=== PATIENT | male | born 1985 | race Caucasian/White ===

== ENCOUNTER 2017-05-28 17:52 | Emergency (ER) | payer BC, MEDICAID | END 2017-05-28 19:33 | disposition left against medical advice (07) | LOC: ER 17:54 | DX: Z53.21 Procedure and treatment not carried out due to patient leaving prior to being seen by health care provider (principal) ==

== ENCOUNTER 2018-11-17 17:02 | Emergency (ER) | payer BC, MEDICAID ==
[~2018-11-17] VITALS: Ht 188 cm; Wt 113.6 kg
[2018-11-17 17:24] VITALS: BP 129/81
[2018-11-17 18:04] LABS: CLARITY,URINE CLEAR (Clear); COLOR,URINE YELLOW (Yellow); GLUCOSE, URINE NEGATIVE (Neg); KETONES,URINE NEGATIVE (Neg); LEUKOCYTE ESTERASE ,URINE NEGATIVE (Neg); NITRITES, URINE NEGATIVE (Neg); OCCULT BLOOD,URINE NEGATIVE (Neg); PROTEIN,URINE NEGATIVE (Neg); UROBILINOGEN,URINE 0.2 E.U/dL (0.2-1.0)
[2018-11-17] MEDS ORDERED: HYDROcodone/acetaminophen 5mg/325mg tablet PO ONE (18:05)
[2018-11-17] MEDS ORDERED: ibuprofen tablet 400 MG TABLET PO ONE (18:05)
[2018-11-17] MEDS ORDERED: ondansetron 4mg rapidly disintigrating tab PO ONE (18:05)
[2018-11-17 18:07] LABS: UA COLLECTION TYPE CLN CATCH MIDSTREAM
[2018-11-17 18:26] LABS: BASOPHILS # (AUTO) 0.1 X10'3 (0-0.2); BASOPHILS % (AUTO) 0.7 % (0-1); EOSINOPHILS # (AUTO) 0.4 X10'3 (0-0.9); EOSINOPHILS % (AUTO) 4.5 % (0-6); HEMATOCRIT 42.6 % (42.0-52.0); LYMPHOCYTES # (AUTO) 3.3 X10'3 (1.1-4.8); LYMPHOCYTES % (AUTO) 38.9 % (21-51); MEAN CORPUSCULAR HGB CONC 35.2 g/dL (33.0-36.5); MEAN CORPUSCULAR VOLUME 87.9 FL (78-98); MEAN PLATELET VOLUME 8.1 FL (7.4-10.4); MONOCYTES # (AUTO) 0.5 X10'3 (0-0.9); MONOCYTES % (AUTO) 6.2 % (2-12); NEUTROPHILS # (AUTO) 4.2 X10'3 (1.8-7.7); NEUTROPHILS % (AUTO) 49.7 % (42-75); PLATELET COUNT 199 X10'3 (140-440); RED BLOOD COUNT 4.85 X10'6 (4.70-6.10); RED CELL DISTRIBUTION WIDTH 13.1 % (11.5-14.5); WHITE BLOOD COUNT 8.4 X10'3 (4.5-11.0)
[2018-11-17 18:36] LABS: ALBUMIN 3.4 G/DL (3.4-5.0); ALKALINE PHOSPHATASE 73 IU/L (46-116); BILIRUBIN,TOTAL 0.6 MG/DL (0.1-1.0); BLOOD UREA NITROGEN 19 MG/DL (7-18); BUN/CREATININE RATIO 16.2 (5.4-32.0); CALCIUM 8.2 MG/DL (8.5-10.1); CREATININE 1.17 MG/DL (0.60-1.10); LIPASE 167 U/L (73-393); SODIUM 139 MMOL/L (135-145); TOTAL CARBON DIOXIDE 28.7 MMOL/L (24-32); eGFR 71 ML/MIN
[2018-11-17] MEDS ORDERED: normal saline 1000ml 1,000 ML IV ONE (18:50)
[2018-11-17 19:01] LABS: ALANINE AMINOTRANSFERASE 45 U/L (12-78); ANION GAP 7 (8-16); ASPARTATE AMINO TRANSFERASE 18 U/L (10-37); CHLORIDE 103 MMOL/L (99-107); GLUCOSE 98 MG/DL (70-104); POTASSIUM 3.9 MMOL/L (3.5-5.1); TOTAL PROTEIN 6.9 G/DL (6.4-8.2)
[2018-11-17] MEDS ORDERED: OMEP20TA5 PO (19:14)
[2018-11-17] MEDS ORDERED: ESOMEPRAZOLE 40 MG VIAL IV STA (19:14)
[2018-11-17] MEDS ORDERED: ONDA8TAB6 PO (19:14)
[2018-11-17] MEDS ORDERED: HYDR-3965 PO (19:14)
== END 2018-11-17 19:37 | disposition home or self-care (01) ==
LOC: ER 17:03
DX: R10.32 Left lower quadrant pain (principal); R19.7 Diarrhea, unspecified; F10.99 Alcohol use, unspecified with unspecified alcohol-induced disorder; Z87.442 Personal history of urinary calculi; Z79.899 Other long term (current) drug therapy; Y90.9 Presence of alcohol in blood, level not specified
CPT/HCPCS: 36415; 80053; 81003; 83690; 85025; 96361; 96374; 99284; J2405; J7030

== ENCOUNTER 2021-08-25 12:16 | Emergency (ER) | payer MEDICAID ==
[~2021-08-25] VITALS: Ht 188 cm; Wt 97.7 kg
[~2021-08-25 12:16] MED LIST: OMEP20TA43 PO; ONDA8TAB6 PO; PANT-47 PO
[2021-08-25 12:18] VITALS: BP 132/85
== END 2021-08-25 15:00 | disposition left against medical advice (07) ==
LOC: ER 12:16
DX: R07.9 Chest pain, unspecified (principal); Z53.21 Procedure and treatment not carried out due to patient leaving prior to being seen by health care provider